=== PATIENT | male | born 1960 | race African-American/Black ===

== ENCOUNTER 2017-11-19 09:18 | Emergency (ER) | payer SELFPAY ==
[2017-11-19] MEDS ORDERED: Ondansetron HCl/PF 4 MG/2 ML Vial ONE (09:56)
[2017-11-19 10:03] LABS: #Basophils 0.1 thou/uL (0.0-0.2); #Lymphocytes 1.5 thou/uL (1.20-3.40); #Monocytes 0.5 thou/uL (0.11-0.59); #Neutrophils 6.9 thou/uL (1.40-6.50); %Basophils 0.8 % (0.0-1.0); %Lymphocytes 16.3 % (21.0-51.0); %Neutrophils 76.8 % (42.0-75.0); Hemoglobin 15.7 g/dL (14.0-18.0); Mean Corpuscular HGB CONC 32.4 g/dL (32.0-36.0); Mean Corpuscular Hemoglobin 27.7 pg (27.0-31.0); Mean Corpuscular Volume 85.6 fl (80.0-94.0); Mean Platelet Volume 10.4 fL (7.4-10.4); Platelet Count 125 thou/uL (130-400); RBC Distribution Width 13.6 % (11.5-14.5); Red Blood Cell (RBC) Count 5.65 mill/uL (4.70-6.10)
[2017-11-19 10:25] LABS: ALT (SGPT) 48 U/L (8-55); AST (SGOT) 39 U/L (5-34); Alkaline Phosphatase 71 U/L (40-150); Anion Gap 17 mmol/L (10-20); BUN (Urea Nitrogen) 44 mg/dL (8.4-25.7); Bilirubin, Total 0.6 mg/dL (0.2-1.2); CK (CPK) 184 U/L (30-200); Calc. Creatinine Clearance 0 mL/min (70-130); Calcium 9.6 mg/dL (7.8-10.44); Carbon Dioxide 22 mmol/L (22-29); Chloride 98 mmol/L (98-107); Estimated GFR-MDRD 38; Globulin 4.2 g/dL (2.4-3.5); Glucose 161 mg/dL (70-105); Lipase 51 U/L (8-78); Potassium 4.5 mmol/L (3.5-5.1); Protein, Total 8.2 g/dL (6.0-8.3); Sodium 132 mmol/L (136-145)
[2017-11-19 10:26] LABS: CKMB 0.8 ng/mL (0-6.6); Troponin I Less than 0.010 ng/mL (< 0.028)
--- NOTE | 2017-11-19 10:44 | RAD ---
ACUTE ABDOMINAL SERIES: INDICATION: Nausea and vomiting since Tuesday. FINDINGS: No airspace consolidation or pleural effusion is evident. Cardiomediastinal silhouette is within nor mal limits. The bowel gas pattern is nonspecific but without evidence of obstruction. A small radiopaque density is seen within the left mid abdomen which may reflect ingested material or possibly an embedded fore ign body within the torso of the patient's left abdominal wall. No acute osseous abnormality is evid ent. IMPRESSION: 1. No definite acute abnormality. 2. Radiopaque foreign body possibly within the torso of the patient's left mid abdomen. This also c ould reflect an ingested metallic debris within the region of the distended colon. POS: [facility]
[2017-11-19 12:35] LABS: Bilirubin Negative (Negative); Blood, Urine Trace (Negative); Clarity CLOUDY (Clear); Glucose, Urine (Dipstick) Negative (Negative); Leukocyte Negative (Negative); Nitrite Negative (Negative); Protein, Urine (Dipstick) 100 mg/dL (Neg-Trace); Specific Gravity, Urine 1.024 (1.002-1.036); pH, Urine 5.5 (5.0-9.0)
[2017-11-19 12:36] LABS: Hyaline Casts/LPF 7-10 HYALINE CAST LPF (0-3 Hyaline); Pathc Cast-AUWi Flag 1.08 (0-2.49); RBC/HPF 0-3 HPF (0-3); Squamous Epithelial 0-3 HPF (0-3); WBC/HPF 0-3 HPF (0-3)
[2017-11-19 12:37] LABS: Yeast-AUWi Flag 31.1 (0-25.0)
[2017-11-19 12:46] LABS: Bacteria/HPF 1+ HPF (None Seen); Yeast-All Forms None Seen HPF (None Seen)
[2017-11-19] MEDS ORDERED: ISOVUE-370 76%-LOCM 1 ML ONE (12:58)
--- NOTE | 2017-11-19 13:22 | CT ---
CT ARTERIOGRAM CHEST WITH IV CONTRAST AND 3D MIP IMAGING: History Chest pain. Dyspnea. FINDINGS: There is good contrast opacification of the pulmonary arteries and thoracic aorta with normal branchi ng of the great vessels. Lungs are hyperinflated with scattered emphysematous changes. Interstitial and parenchymal opacities are scattered about each lung, most pronounced at the lung bases in the areas of scarring. IMPRESSION: 1. No CT evidence of pulmonary embolus. 2. Chronic obstructive pulmonary disease. Bibasilar scarring/atelectasis. POS: [facility]
== END 2017-11-19 14:26 | disposition home or self-care (01) ==
LOC: ERS 09:18
DX: R11.2 Nausea with vomiting, unspecified (principal); F17.210 Nicotine dependence, cigarettes, uncomplicated
CPT/HCPCS: 71275; 74022; 80053; 81003; 81015; 82550; 82553; 83690; 84484; 85025; 85379; 93005; 94760; 96361; 96374; J2405

== ENCOUNTER 2022-09-18 14:10 | Inpatient (IN) | payer OTHER ==
[2022-09-18] MEDS ORDERED: cefTRIAXone\\ROCEPHIN 1 GM VIAL ONE (15:19)
[2022-09-18] MEDS ORDERED: Azithromycin 500 MG VIAL ONE (15:19)
[2022-09-18 16:25] LABS: #Basophils 0.1 thou/uL (0.0-0.2); #Lymphocytes 0.9 thou/uL (1.20-3.40); #Monocytes 0.3 thou/uL (0.11-0.59); #Neutrophils 10.7 thou/uL (1.40-6.50); %Basophils 0.8 % (0.0-1.0); %Lymphocytes 7.4 % (21.0-51.0); %Monocytes 2.1 % (0.0-10.0); %Neutrophils 89.8 % (42.0-75.0); Mean Corpuscular HGB CONC 32.2 g/dL (32.0-36.0); Mean Corpuscular Hemoglobin 27.8 pg (27.0-31.0); Mean Corpuscular Volume 86.4 fl (78.0-98.0); Mean Platelet Volume 10.7 fL (7.4-10.4); Platelet Count 131 10x3/uL (130-400); RBC Distribution Width 13.9 % (11.5-14.5); Red Blood Cell (RBC) Count 5.02 mill/uL (4.70-6.10)
[2022-09-18 16:48] LABS: ALT (SGPT) 23 U/L (8-55); AST (SGOT) 30 U/L (5-34); Albumin 3.5 g/dL (3.4-4.8); Alkaline Phosphatase 62 U/L (40-110); Anion Gap 14 mmol/L (10-20); BUN (Urea Nitrogen) 33 mg/dL (8.4-25.7); Bilirubin, Total 0.6 mg/dL (0.2-1.2); Calc. Creatinine Clearance 0 mL/min (70-130); Calcium 7.7 mg/dL (7.8-10.44); Carbon Dioxide 23 mmol/L (23-31); Chloride 105 mmol/L (98-107); Estimated GFR 60; Globulin 2.8 g/dL (2.4-3.5); Glucose 133 mg/dL (80-115); Potassium 4.1 mmol/L (3.5-5.1); Protein, Total 6.3 g/dL (5.8-8.1); Sodium 138 mmol/L (136-145)
[2022-09-18] MEDS: Sodium Chloride 0.9% 1,000 ML IV SCH (20:19)
[2022-09-18 20:31] LABS: Lactic Acid 1.9 mmol/L (0.5-2.2)
[2022-09-18] MEDS ORDERED: Acetaminophen 650 MG Suppository PR PRN (21:21)
[2022-09-18] MEDS ORDERED: Senokot S 8.6-50 MG TAB PO PRN (21:21)
[2022-09-18] MEDS ORDERED: Ondansetron PF 4 MG/2 ML Vial IVP PRN (21:21)
[2022-09-18] MEDS ORDERED: Bisacodyl 5 MG TAB PO PRN (21:21)
[2022-09-18] MEDS ORDERED: Guaifenesin DM 100-10/5 ML UDCUP PO PRN (21:21)
[2022-09-18] MEDS ORDERED: Acetaminophen 325 MG TAB PO PRN (21:21)
[2022-09-18] MEDS ORDERED: Ondansetron ODT 4 MG TAB PO PRN (21:21)
[2022-09-18] MEDS ORDERED: Bisacodyl 10 MG SUPP PR PRN (21:21)
[2022-09-18 23:17] VITALS: BMI 21.5
[2022-09-19 02:05] LABS: Bacteria/HPF None Seen HPF (None Seen); Bilirubin Negative (Negative); Blood, Urine Trace (Negative); CAUTI Indications for Culture Fever or rigors; Clarity Clear (Clear); Glucose, Urine (Dipstick) Normal (Negative); Ketone, Urine 10 mg/dL (Negative); Leukocyte 250 Leu/uL (Negative); Nitrite Negative (Negative); Protein, Urine (Dipstick) 30 mg/dL (Neg-Trace); RBC/HPF 0-3 HPF (0-3); Specific Gravity, Urine 1.022 (1.002-1.036); Squamous Epithelial None Seen HPF (0-3); Urobilinogen Normal mg/dL (Less than 2); WBC/HPF 21-50 HPF (0-3); pH, Urine 5.5 (5.0-9.0)
[2022-09-19 02:17] LABS: Urine Culture Reflex Yes Yes
[2022-09-19] MEDS: Sodium Chloride 0.9% 1,000 ML IV SCH ×3 (04:43→22:11)
[2022-09-19 07:14] LABS: #Basophils 0.1 thou/uL (0.0-0.2); #Lymphocytes 0.9 thou/uL (1.20-3.40); #Monocytes 0.6 thou/uL (0.11-0.59); %Basophils 0.9 % (0.0-1.0); %Lymphocytes 8.6 % (21.0-51.0); %Monocytes 5.2 % (0.0-10.0); %Neutrophils 85.3 % (42.0-75.0); Hemoglobin 12.2 g/dL (14.0-18.0); Mean Corpuscular HGB CONC 32.3 g/dL (32.0-36.0); Mean Corpuscular Hemoglobin 27.8 pg (27.0-31.0); Mean Corpuscular Volume 86.1 fl (78.0-98.0); Mean Platelet Volume 10.5 fL (7.4-10.4); Platelet Count 128 10x3/uL (130-400); RBC Distribution Width 13.7 % (11.5-14.5); Red Blood Cell (RBC) Count 4.39 mill/uL (4.70-6.10); White Blood Cell (WBC) Count 10.5 10x3/uL (4.8-10.8)
[2022-09-19 07:40] LABS: Anion Gap 12 mmol/L (10-20); BUN (Urea Nitrogen) 25 mg/dL (8.4-25.7); Calc. Creatinine Clearance 81 mL/min (70-130); Calcium 8.3 mg/dL (7.8-10.44); Carbon Dioxide 21 mmol/L (23-31); Chloride 111 mmol/L (98-107); Estimated GFR 97; Glucose 155 mg/dL (80-115); Potassium 4.2 mmol/L (3.5-5.1); Sodium 140 mmol/L (136-145)
[2022-09-19] MEDS ORDERED: FLU VACC QS2022-23(6MOS UP)/PF 60 MCG/0.5 ML SYRINGE IM ONE (09:00)
[2022-09-19] MEDS: Heparin 5,000 UNITS/ML VIAL SC SCH ×2 (10:19→19:38)
[2022-09-19] MEDS ORDERED: cefTRIAXone\\ROCEPHIN 1 GM in Sodium Chloride 0.9% 100 ML IVPB SCH (15:00)
[2022-09-19] MEDS ORDERED: Azithromycin 500 MG in Sodium Chloride 0.9% 250 ML 250 ML IVPB SCH (16:00)
[2022-09-20 08:30] VITALS: BP 136/81; TEMP 98
[2022-09-20] MEDS: Heparin 5,000 UNITS/ML VIAL SC SCH (08:57)
[2022-09-20 09:44] LABS: SARS-CoV-2 NAA Rapid Test Not Detected (NotDetected)
== END 2022-09-20 15:01 | disposition left against medical advice (07) | DRG 871 ==
LOC: ERS 14:10 → T4-B 18:26
PROVIDERS: ADMIT Hospitalist; ATTEND Internal Medicine
DX: A41.9 Sepsis, unspecified organism (principal); J18.9 Pneumonia, unspecified organism; N17.9 Acute kidney failure, unspecified; F17.210 Nicotine dependence, cigarettes, uncomplicated; Z88.8 Allergy status to other drugs, medicaments and biological substances; Z20.822 Contact with and (suspected) exposure to COVID-19; B34.9 Viral infection, unspecified; R11.2 Nausea with vomiting, unspecified
CPT/HCPCS: 36415; 71045; 74177; 80048; 80053; 81001; 83605; 83690; 83880; 84145; 84484; 85025; 87040; 87086; 93005; 94640; 94760; 96361; 96374; J0456; J0696; J1644; J2405; J3490; J7050; J7620; Q9963; Q9967; U0003; U0005